=== PATIENT | male | born 1955 | race Caucasian/White ===

== ENCOUNTER → 2016-04-23 | Outpatient (CLI) | payer BC ==
--- NOTE | 2016-04-23 08:59 | DX ---
Single View Abdomen April 23, 2016 0758 hours Clinical Indication: Nephrolithiasis. Comparison: March 12, 2016. Findings: There has been overall improvement in the number and size of the calculi present in the rig ht kidney. The largest punctate calcification present on today's examination measures 3.7 mm. Previou sly, there was a 12 x 4 mm calcification. No ureteral calcifications. Phleboliths are noted in the pe lvis. Impression: Punctate right nephrolithiasis.
== END ==
LOC: FIMAGING 07:55
PROVIDERS: ATTEND Specialist
DX: N20.0 Calculus of kidney (principal)

== ENCOUNTER → 2017-01-13 | Outpatient (CLI) | payer BC | LOC: CIMAGING 11:09 | PROVIDERS: ATTEND Specialist | DX: N20.0 Calculus of kidney (principal) | CPT/HCPCS: 74000-PO ==

== ENCOUNTER → 2017-11-30 | Outpatient (CLI) | payer BC | LOC: CIMAGING 13:10 | PROVIDERS: ATTEND Specialist | DX: N20.0 Calculus of kidney (principal); I87.8 Other specified disorders of veins | CPT/HCPCS: 74018-PO ==